=== PATIENT | male | born 1970 | race Caucasian/White ===

== ENCOUNTER 2017-09-18 22:24 | Emergency (ER) | payer OTHER ==
[~2017-09-18] VITALS: Ht 180.3 cm; Wt 95.5 kg
[~2017-09-18 22:24] MED LIST: ASPI-496 PO; LOSA25TA5 PO
[2017-09-18] MEDS ORDERED: ACETAMINOPHEN 500 MG TABLET ONE (23:08)
[2017-09-18 23:23] LABS: MICROSCOPIC AUTO
[2017-09-18 23:25] LABS: CULTURE INDICATED? NO
[2017-09-18] MEDS ORDERED: SODIUM CHLORIDE FLUSH 10ML SYR IVF ONE (23:30)
[2017-09-18] MEDS ORDERED: ACETAMINOPHEN 500 MG TABLET PO ONE (23:30)
[2017-09-18] MEDS ORDERED: SODIUM CHLORIDE 0.9% 1,000ML IVBOLUS ONE (23:30)
[2017-09-18 23:32] LABS: RAPID INFLUENZA A Negative (Negative); RAPID INFLUENZA B Negative (Negative)
[2017-09-18 23:42] LABS: CHLORIDE 107 mmol/L (98-107)
[2017-09-18 23:43] LABS: ALANINE AMINOTRANSFERASE 37 U/L (12-78); ALBUMIN 4.1 g/dL (3.4-5.0); ANION GAP 9 mmol/L (5-15); CALCIUM 8.8 mg/dL (8.5-10.1); CREATININE 0.87 mg/dL (0.7-1.3)
[2017-09-18 23:47] LABS: ALKALINE PHOSPHATASE 84 U/L (45-117); BILIRUBIN,TOTAL 1.2 mg/dL (0.2-1.0); TOTAL PROTEIN 7.9 g/dL (6.4-8.2); TROPONIN I < 0.015 ng/mL (0.000-0.045)
[2017-09-18 23:56] LABS: BASOPHILS # (AUTO) 0.04 x10^3/uL (0-0.1); BASOPHILS % (AUTO) 0 % (0-1); EOSINOPHILS # (AUTO) 0.04 x10^3/uL (0-0.4); EOSINOPHILS % (AUTO) 0 % (1-7); LYMPHOCYTES # (AUTO) 1.64 x10^3/uL (1-3.4); LYMPHOCYTES % (AUTO) 17 % (22-44); MD NO; MEAN CORPUSCULAR HEMOGLOBIN 30.7 pg (27.5-34.5); MEAN CORPUSCULAR HGB CONC 34.2 g/dL (33.2-36.2); MEAN PLATELET VOLUME 8.8 fL (7.4-10.4); MONOCYTES # (AUTO) 0.69 x10^3/uL (0.2-0.8); MONOCYTES % (AUTO) 7 % (2-9); NEUTROPHILS # (AUTO) 7.21 x10^3/uL (1.8-6.8); NEUTROPHILS % (AUTO) 75 % (42-75); PLATELET COUNT 223 x10^3/uL (130-400); RED CELL DISTRIBUTION WIDTH 12.6 % (9.4-14.8)
[2017-09-19 00:35] VITALS: BP 143/78
== END 2017-09-19 01:35 | disposition home or self-care (01) ==
LOC: ED 09-19 01:24
DX: B34.9 Viral infection, unspecified (principal); M79.602 Pain in left arm; I88.0 Nonspecific mesenteric lymphadenitis
CPT/HCPCS: 36415; 71045; 74176; 80053; 81001; 84484; 85025; 87400; 93005; 96360; 99285; J7030

== ENCOUNTER → 2017-10-27 | Outpatient (CLI) | payer OTHER | END | disposition home or self-care (01) | LOC: RAD 09:11 | PROVIDERS: ATTEND Internal Medicine Gastroenterology | DX: K21.9 Gastro-esophageal reflux disease without esophagitis (principal); R13.10 Dysphagia, unspecified; R47.02 Dysphasia | CPT/HCPCS: 74230 ==

== ENCOUNTER 2020-04-19 01:10 | Emergency (ER) | payer OTHER ==
[~2020-04-19] VITALS: Ht 180.3 cm; Wt 98.0 kg
[~2020-04-19 01:10] MED LIST changes: +LOSA25TA25 PO; -LOSA25TA5 PO
[2020-04-19 01:47] VITALS: BP 148/85
[2020-04-19 01:49] LABS: BASOPHILS # (AUTO) 0.04 x10^3/uL (0-0.1); BASOPHILS % (AUTO) 1 % (0-1); EOSINOPHILS # (AUTO) 0.19 x10^3/uL (0-0.4); EOSINOPHILS % (AUTO) 2 % (1-7); LYMPHOCYTES % (AUTO) 40 % (22-44); MD NO; MEAN CORPUSCULAR HEMOGLOBIN 30.3 pg (27.5-34.5); MEAN CORPUSCULAR HGB CONC 33.1 g/dL (33.2-36.2); MEAN CORPUSCULAR VOLUME 91.7 fL (81-97); MEAN PLATELET VOLUME 8.7 fL (7.4-10.4); MONOCYTES # (AUTO) 0.41 x10^3/uL (0.2-0.8); MONOCYTES % (AUTO) 5 % (2-9); NEUTROPHILS # (AUTO) 4.06 x10^3/uL (1.8-6.8); NEUTROPHILS % (AUTO) 52 % (42-75); PLATELET COUNT 208 x10^3/uL (130-400); RED BLOOD COUNT 4.84 x10^6/uL (4.38-5.82); RED CELL DISTRIBUTION WIDTH 12.9 % (9.4-14.8)
[2020-04-19 01:59] LABS: ALBUMIN 3.9 g/dL (3.4-5.0); ANION GAP 6 mmol/L (5-15); CALCIUM 8.6 mg/dL (8.5-10.1); CHLORIDE 107 mmol/L (98-107)
[2020-04-19 02:04] LABS: TROPONIN I < 0.015 ng/mL (0.000-0.045)
--- NOTE | 2020-04-19 02:08 | NUR ---
LATE ENTRY SUMMARY NOTE: PT SITTING IN BED, RESPIRATIONS EVEN AND UNLABORED, CALL LIGHT IN REACH, AT BEDSIDE. PT CONNECTED TO BP, CARDIAC AND O2 MONITORS. PT STATES HE HAS TINGLING IN HANDS THAT HAS BEEN GETTING PROGESSIVELY WORSE FOR A MINIMUM OF WEEKS, IF NOT LONGER. PT IS A POOR HISTORIAN. PT STATES IT FEELS LIKE HIS HAND FALL ASLEEP. "WHEN I'M LAYING IN BED, WITH MY PHONE, I CAN ONLY HOLD IT UP FOR 20 MINUTES BEFORE MY HANDS GO TINGLY, I USED TO BE ABLE TO HOLD IT UP FOR AN HOUR."
[2020-04-19 02:25] LABS: FREE T4 (FREE THYROXINE) 1.08 ng/dL (0.76-1.46)
--- NOTE | 2020-04-19 02:27 | NUR ---
PT AMBULATORY TO BATHROOM, STEADY GAIT.
--- NOTE | 2020-04-19 02:52 | NUR ---
ERP TO BEDSIDE TO UPDATE PT ON POC.
== END 2020-04-19 03:17 | disposition home or self-care (01) ==
LOC: ED 01:33
DX: R20.2 Paresthesia of skin (principal); E03.4 Atrophy of thyroid (acquired); E03.9 Hypothyroidism, unspecified; M25.522 Pain in left elbow; I10 Essential (primary) hypertension; I21.9 Acute myocardial infarction, unspecified
CPT/HCPCS: 36415; 80048; 82040; 83735; 84439; 84443; 84484; 85025; 93005; 99284